=== PATIENT | male | born 1990 | race African-American/Black ===

== ENCOUNTER 2017-07-05 13:05 | Emergency (ER) | payer OTHER ==
[~2017-07-05] VITALS: Ht 170.2 cm; Wt 87.0 kg
[~2017-07-05 13:05] MED LIST: CEPH-569; IBUP-779; OXYC-102; SULF-165
[2017-07-05 17:47] VITALS: BP 112/81
== END 2017-07-05 17:51 | disposition home or self-care (01) ==
LOC: ER 13:05
DX: M25.511 Pain in right shoulder (principal); F12.10 Cannabis abuse, uncomplicated
CPT/HCPCS: 73030; 99284